=== PATIENT | male | born 1950 | race African-American/Black ===

== ENCOUNTER 2020-05-13 13:19 | Inpatient (IN) | payer MEDICARE, OTHER ==
[~2020-05-13] VITALS: Ht 172.7 cm; Wt 84.4 kg
[~2020-05-13 13:19] MED LIST: ASA PO; FOLI-43 PO; LEVO500T2 PO
[2020-05-13] MEDS ORDERED: SODIUM CHLORIDE 0.9% 1,000 ML IV ONE (13:45)
[2020-05-13 14:40] LABS: BASOPHILS % 0.5 % (0.0-2.0); EOSINOPHILS % 1.3 % (0.0-5.0); HEMATOCRIT. 35.2 % (42.0-52.0); HEMOGLOBIN. 11.6 g/dL (14.0-18.0); LYMPHOCYTES % 13.4 % (20.0-50.0); MEAN CORPUSCULAR HEMOGLOBIN 33.8 pg (28.0-32.0); MEAN CORPUSCULAR VOLUME 102.4 fL (80.0-94.0); MEAN PLATELET VOLUME 8.9 fl (7.4-10.4); NEUTROPHILS % 81.8 % (40.0-76.0); PLATELET 217 x1000/uL (130-400); RED BLOOD CELL COUNT 3.43 mill/uL (4.7-6.1); RED CELL DISTRIBUTION WIDTH 14.1 % (11.6-14.6)
[2020-05-13 14:44] LABS: ETHANOL BLOOD < 10 mg/dL
[2020-05-13 14:47] LABS: CHLORIDE 94 mEq/L (98-107)
[2020-05-13 15:33] LABS: INR 1.6; PARTIAL THROMBOPLASTIN TIME 37.6 sec (23.4-31.0); PROTHROMBIN TIME 16.8 sec (9.6-11.0)
[2020-05-13] MEDS ORDERED: SODIUM POLYSTYRENE SULFONATE 15 G/60 ML BOT PO ONE (15:45)
[2020-05-13] MEDS ORDERED: SODIUM BICARBONATE 8.4% 1 MEQ/ML 50ML SYR IV ONE (15:45)
[2020-05-13] MEDS ORDERED: INSULIN REGULAR (HUMULIN R) 300UNITS/3ML VIAL IV ONE (15:45)
[2020-05-13] MEDS ORDERED: ALBUTEROL (0.083%) 2.5MG/3ML NEB HHN ONE (15:45)
[2020-05-13] MEDS ORDERED: DEXTROSE 50% WATER 50ML SYRINGE IV ONE (15:45)
[2020-05-13] MEDS ORDERED: LACTULOSE 20G/30ML UDC PO ONE (17:00)
[2020-05-13] MEDS ORDERED: LORAZEPAM 2MG/ML CPJ IV PRN (19:30)
[2020-05-13] MEDS ORDERED: ONDANSETRON HCL 4MG/2ML INJ IV PRN (19:30)
[2020-05-13] MEDS ORDERED: FOLIC ACID 1 MG, THIAMINE HCL 100 MG, MVI, ADULT NO.1 10 ML in DEXTROSE 5% WATER 1,000 ML IV NR ×4 (20:00)
[2020-05-13 21:37] LABS: PHOSPHORUS 5.2 mg/dL (2.5-4.9)
[2020-05-13] MEDS: LACTULOSE 20G/30ML UDC PO SCH (22:00)
[2020-05-13] MEDS: CHLORDIAZEPOXIDE 25MG CAPSULE PO SCH (22:00)
[2020-05-13] MEDS: SODIUM CHLORIDE 0.9% 1,000 ML IV SCH (22:30)
[2020-05-14] VITALS (7 sets, daily range): BP systolic 88–125; BP diastolic 55–73
[2020-05-14 05:44] LABS: HEMATOCRIT. 32.2 % (42.0-52.0); HEMOGLOBIN. 10.8 g/dL (14.0-18.0); MEAN CORPUSCULAR HEMOGLOBIN 33.6 pg (28.0-32.0); MEAN CORPUSCULAR VOLUME 100.1 fL (80.0-94.0); MEAN PLATELET VOLUME 8.1 fl (7.4-10.4); PLATELET 161 x1000/uL (130-400); RED BLOOD CELL COUNT 3.22 mill/uL (4.7-6.1)
[2020-05-14] MEDS: CHLORDIAZEPOXIDE 25MG CAPSULE PO SCH ×3 (06:25→21:56)
[2020-05-14 07:10] LABS: CLARITY URINE CLOUDY (CLEAR); COLOR URINE ORANGE (YELLOW); KETONES URINE TRACE (NEGATIVE); LEUKOCYTE ESTERASE URINE 2+ (NEGATIVE); NITRITE URINE NEGATIVE (NEGATIVE); OCCULT BLOOD URINE 1+ (NEGATIVE); PROTEIN URINE NEGATIVE (NEGATIVE); SPECIFIC GRAVITY URINE 1.019 (1.005-1.030)
[2020-05-14 07:35] LABS: *AMPHETAMINES SCREEN URINE NEGATIVE (NEGATIVE); *BARBITURATES SCREEN URINE NEGATIVE (NEGATIVE); *BENZODIAZEPINES SCREEN URINE NEGATIVE (NEGATIVE); *COCAINE SCREEN URINE NEGATIVE (NEGATIVE); CANNABINOID URINE SCREEN NEGATIVE (NEGATIVE); METHADONE URINE SCREEN NEGATIVE (NEGATIVE); OPIATES URINE SCREEN NEGATIVE (NEGATIVE); PHENCYCLIDINE URINE SCREEN NEGATIVE (NEGATIVE)
[2020-05-14] MEDS ORDERED: CEFTRIAXONE 1 G PREMIX 50 ML IV SCH (09:00)
[2020-05-14 13:43] LABS: PLATELET ESTIMATE NORMAL
[2020-05-14] MEDS: LACTULOSE 20G/30ML UDC PO SCH ×3 (16:25→21:56)
[2020-05-14] MEDS: CEFTRIAXONE 1,000 MG in DEXTROSE 5% WATER 50 ML IV SCH (16:29)
[2020-05-14] MEDS: SODIUM CHLORIDE 0.9% 1,000 ML IV SCH (16:30)
[2020-05-14] MEDS: FOLIC ACID 1MG TABLET PO SCH (18:25)
[2020-05-14] MEDS: THIAMINE HCL 100MG TABLET PO SCH (18:25)
[2020-05-14] MEDS: MIDODRINE HCL 5MG TABLET PO SCH (22:23)
[2020-05-15] VITALS (12 sets, daily range): BP systolic 82–153; BP diastolic 50–74
[2020-05-15] MEDS: LACTULOSE 20G/30ML UDC PO SCH ×3 (05:29→21:28)
[2020-05-15] MEDS: CHLORDIAZEPOXIDE 25MG CAPSULE PO SCH ×3 (05:29→21:28)
[2020-05-15] MEDS: MIDODRINE HCL 5MG TABLET PO SCH ×3 (05:29→21:28)
[2020-05-15] MEDS: SODIUM CHLORIDE 0.9% 1,000 ML IV SCH (05:51)
[2020-05-15 06:20] LABS: BASOPHILS % 0.4 % (0.0-2.0); EOSINOPHILS % 0.8 % (0.0-5.0); HEMATOCRIT. 28.2 % (42.0-52.0); HEMOGLOBIN. 9.3 g/dL (14.0-18.0); LYMPHOCYTES % 8.4 % (20.0-50.0); MEAN CORPUSCULAR HEMOGLOBIN 33.3 pg (28.0-32.0); MEAN CORPUSCULAR VOLUME 100.6 fL (80.0-94.0); MEAN PLATELET VOLUME 8.7 fl (7.4-10.4); MONOCYTES % 7.1 % (2.0-8.0); NEUTROPHILS % 83.3 % (40.0-76.0); PLATELET 161 x1000/uL (130-400); RED CELL DISTRIBUTION WIDTH 13.9 % (11.6-14.6)
[2020-05-15] MEDS: FOLIC ACID 1MG TABLET PO SCH ×2 (09:00→09:25)
[2020-05-15] MEDS ORDERED: THIAMINE HCL 100MG TABLET PO SCH (09:00)
[2020-05-15 09:02] LABS: VITAMIN B12 SERUM >2000 pg/mL pg/mL (211-911)
[2020-05-15] MEDS: THIAMINE HCL 100MG TABLET PO SCH (09:25)
[2020-05-15] MEDS: MULTIVITAMINS,THER W-MINERALS TABLET PO SCH (09:25)
[2020-05-15] MEDS: PANTOPRAZOLE SODIUM 40 MG/VIAL IV SCH (09:25)
[2020-05-15] MEDS: POTASSIUM CHLORIDE 20MEQ TABLET SR PO SCH ×2 (09:26→12:13)
[2020-05-15] MEDS ORDERED: PHYTONADIONE 10MG/ML AMP SUBCUT SCH (11:00)
[2020-05-15] MEDS: CEFTRIAXONE 1,000 MG in DEXTROSE 5% WATER 50 ML IV SCH (12:13)
[2020-05-15 13:07] LABS: INR 1.4
[2020-05-15 14:25] LABS: FERRITIN 309 ng/mL (22-322)
[2020-05-15] MEDS: NYSTATIN/TRIAMCIN CREAM 30GM TOP SCH ×2 (16:41→21:29)
[2020-05-16] VITALS (11 sets, daily range): BP systolic 119–162; BP diastolic 57–103
[2020-05-16] MEDS: MIDODRINE HCL 5MG TABLET PO SCH ×3 (05:05→22:00)
[2020-05-16] MEDS: CHLORDIAZEPOXIDE 25MG CAPSULE PO SCH ×3 (05:06→21:08)
[2020-05-16] MEDS: NYSTATIN/TRIAMCIN CREAM 30GM TOP SCH ×3 (05:06→21:09)
[2020-05-16] MEDS: LACTULOSE 20G/30ML UDC PO SCH ×3 (05:06→21:08)
[2020-05-16] MEDS ORDERED: PHYTONADIONE 10MG/ML AMP SUBCUT NR (06:00)
[2020-05-16 06:57] LABS: HEMATOCRIT. 30.2 % (42.0-52.0); HEMOGLOBIN. 9.9 g/dL (14.0-18.0); MEAN CORPUSCULAR HEMOGLOBIN 33.1 pg (28.0-32.0); MEAN CORPUSCULAR VOLUME 100.6 fL (80.0-94.0); MEAN PLATELET VOLUME 8.4 fl (7.4-10.4); PLATELET 177 x1000/uL (130-400); RED BLOOD CELL COUNT 3.01 mill/uL (4.7-6.1); RED CELL DISTRIBUTION WIDTH 14.1 % (11.6-14.6)
[2020-05-16 06:58] LABS: INR 1.4; PROTHROMBIN TIME 14.6 sec (9.6-11.0)
[2020-05-16] MEDS ORDERED: SODIUM BICARBONATE 4% (2.4MEQ) 5ML VIAL IV ONE (08:11)
[2020-05-16] MEDS ORDERED: LIDOCAINE HCL 1% 20ML VIAL (Pyxis) INJ ONE (08:11)
[2020-05-16] MEDS: FOLIC ACID 1MG TABLET PO SCH (09:00)
[2020-05-16] MEDS: MULTIVITAMINS,THER W-MINERALS TABLET PO SCH (09:00)
[2020-05-16] MEDS: THIAMINE HCL 100MG TABLET PO SCH (09:00)
[2020-05-16] MEDS: PANTOPRAZOLE SODIUM 40 MG/VIAL IV SCH (10:47)
[2020-05-16] MEDS ORDERED: POTASSIUM CHLORIDE 20MEQ TABLET SR PO NR (11:30)
[2020-05-16] MEDS: CEFTRIAXONE 1,000 MG in DEXTROSE 5% WATER 50 ML IV SCH (11:53)
[2020-05-16 16:09] LABS: PLATELET ESTIMATE NORMAL
[2020-05-16] MEDS: METOPROLOL TARTRATE 25MG TABLET PO SCH (21:19)
[2020-05-17] VITALS (12 sets, daily range): BP systolic 102–149; BP diastolic 46–74
[2020-05-17] MEDS: LACTULOSE 20G/30ML UDC PO SCH ×3 (05:18→22:19)
[2020-05-17] MEDS: CHLORDIAZEPOXIDE 25MG CAPSULE PO SCH ×2 (05:18→14:02)
[2020-05-17] MEDS: MIDODRINE HCL 5MG TABLET PO SCH ×3 (05:18→22:19)
[2020-05-17] MEDS: NYSTATIN/TRIAMCIN CREAM 30GM TOP SCH ×3 (05:19→22:19)
[2020-05-17 07:32] LABS: PHOSPHORUS 4.4 mg/dL (2.5-4.9)
[2020-05-17 07:34] LABS: HEMATOCRIT. 31.3 % (42.0-52.0); HEMOGLOBIN. 10.3 g/dL (14.0-18.0); MEAN CORPUSCULAR HEMOGLOBIN 33.3 pg (28.0-32.0); MEAN PLATELET VOLUME 8.9 fl (7.4-10.4); PLATELET 158 x1000/uL (130-400); RED CELL DISTRIBUTION WIDTH 14.3 % (11.6-14.6)
[2020-05-17 07:48] LABS: HEPATITIS B SURFACE ANTIGEN NEGATIVE
[2020-05-17 08:16] LABS: HEPATITIS A AB IGM NEGATIVE (NEGATIVE)
[2020-05-17] MEDS: METOPROLOL TARTRATE 25MG TABLET PO SCH ×2 (09:05→21:58)
[2020-05-17] MEDS: THIAMINE HCL 100MG TABLET PO SCH (09:06)
[2020-05-17] MEDS: MULTIVITAMINS,THER W-MINERALS TABLET PO SCH (09:07)
[2020-05-17] MEDS: PANTOPRAZOLE SODIUM 40 MG/VIAL IV SCH (09:40)
[2020-05-17] MEDS: FOLIC ACID 1MG TABLET PO SCH (10:03)
[2020-05-17] MEDS: CEFTRIAXONE 1,000 MG in DEXTROSE 5% WATER 50 ML IV SCH (12:03)
[2020-05-17] MEDS: SODIUM CHLORIDE 0.45% 1,000 ML IV SCH (17:03)
[2020-05-17 22:11] LABS: PLATELET ESTIMATE NORMAL
[2020-05-17] MEDS: CEFEPIME 2,000 MG in DEXT 5% WATER 100 ML IV SCH (22:21)
[2020-05-17] MEDS: METRONIDAZOLE 500 MG PREMIX 100 ML IV SCH (22:23)
[2020-05-18] VITALS (14 sets, daily range): BP systolic 92–147; BP diastolic 38–62
[2020-05-18] MEDS: LACTULOSE 20G/30ML UDC PO SCH ×3 (05:51→21:22)
[2020-05-18] MEDS: MIDODRINE HCL 5MG TABLET PO SCH ×3 (05:51→21:22)
[2020-05-18] MEDS: NYSTATIN/TRIAMCIN CREAM 30GM TOP SCH ×3 (05:52→21:23)
[2020-05-18 08:53] LABS: HEMATOCRIT. 33.9 % (42.0-52.0); HEMOGLOBIN. 10.9 g/dL (14.0-18.0); MEAN CORPUSCULAR HEMOGLOBIN 32.8 pg (28.0-32.0); MEAN CORPUSCULAR VOLUME 101.9 fL (80.0-94.0); PLATELET 145 x1000/uL (130-400); RED BLOOD CELL COUNT 3.33 mill/uL (4.7-6.1); RED CELL DISTRIBUTION WIDTH 14.4 % (11.6-14.6)
[2020-05-18] MEDS: METRONIDAZOLE 500 MG PREMIX 100 ML IV SCH ×2 (08:57→21:22)
[2020-05-18] MEDS: PANTOPRAZOLE SODIUM 40 MG/VIAL IV SCH (08:58)
[2020-05-18] MEDS: FOLIC ACID 1MG TABLET PO SCH (08:58)
[2020-05-18] MEDS: THIAMINE HCL 100MG TABLET PO SCH (08:59)
[2020-05-18] MEDS: METOPROLOL TARTRATE 25MG TABLET PO SCH ×2 (08:59→21:00)
[2020-05-18] MEDS: MULTIVITAMINS,THER W-MINERALS TABLET PO SCH (09:00)
[2020-05-18 12:27] LABS: BG BASE EXCESS -5.7 mmol/L (-2.0-2.0); BG CARBOXYHEMOGLOBIN 0.3 % (0.5-1.5); BG DEOXYHEMOGLOBIN 4.1 % (0.0-5.0); BG FRACTION INSPIRED OXYGEN 21; BG HCO3 ACT 17.4 mmol/L (22.0-26.0); BG METHEMOGLOBIN 0.5 % (0.0-1.5); BG OXYGEN SATURATION 95.9 % (92.0-98.5); BG OXYHEMOGLOBIN 95.1 % (94.0-97.0); BG PH 7.426 (7.350-7.450); BG PO2 87.9 mmHg (75.0-100.0); BG SAMPLE SITE RIGHT FEMORAL; BG TOTAL HEMOGLOBIN 11.4 g/dL (12.0-18.0); BG VENT MODE ROOM AIR
[2020-05-18] MEDS: SODIUM CHLORIDE 0.45% 1,000 ML IV SCH (13:14)
[2020-05-18 20:34] LABS: PLATELET ESTIMATE NORMAL
[2020-05-18] MEDS: CEFEPIME 2,000 MG in DEXT 5% WATER 100 ML IV SCH (21:22)
[2020-05-19] VITALS (60 sets, daily range): BP systolic 61–145; BP diastolic 36–67
[2020-05-19] MEDS: LACTULOSE 20G/30ML UDC PO SCH ×3 (05:04→21:12)
[2020-05-19] MEDS: MIDODRINE HCL 5MG TABLET PO SCH ×3 (05:04→21:12)
[2020-05-19] MEDS: NYSTATIN/TRIAMCIN CREAM 30GM TOP SCH ×3 (05:05→21:13)
[2020-05-19] MEDS ORDERED: THROMBIN (BOVINE) 5000 UNITS/VIAL TOP ONE (06:13)
[2020-05-19] MEDS ORDERED: BACITRACIN 15GM TUBE TOP ONE (06:13)
[2020-05-19] MEDS ORDERED: BACITRACIN 50,000 UNITS/VIAL ONE (06:13)
[2020-05-19 06:48] LABS: BASOPHILS % 0.2 % (0.0-2.0); EOSINOPHILS % 0.3 % (0.0-5.0); HEMATOCRIT. 29.2 % (42.0-52.0); HEMOGLOBIN. 9.7 g/dL (14.0-18.0); LYMPHOCYTES % 7.5 % (20.0-50.0); MEAN CORPUSCULAR HEMOGLOBIN 33.2 pg (28.0-32.0); MEAN CORPUSCULAR VOLUME 100.6 fL (80.0-94.0); MEAN PLATELET VOLUME 9.7 fl (7.4-10.4); MONOCYTES % 8.1 % (2.0-8.0); NEUTROPHILS % 83.9 % (40.0-76.0); PLATELET 115 x1000/uL (130-400); RED CELL DISTRIBUTION WIDTH 14.4 % (11.6-14.6)
[2020-05-19] MEDS ORDERED: MIDAZOLAM HCL 2 MG/2 ML VIAL ONE (07:05)
[2020-05-19] MEDS ORDERED: FENTANYL CITRATE/PF 50MCG/ML 2ML VIAL ONE (07:05)
[2020-05-19] MEDS ORDERED: LEVETIRACETAM 500 MG in SODIUM CHLORIDE 0.9% 100 ML IV SCH (07:30)
[2020-05-19] MEDS ORDERED: SODIUM BICARBONATE 4% (2.4MEQ) 5ML VIAL IV ONE (08:02)
[2020-05-19] MEDS ORDERED: LIDOCAINE HCL 1% 20ML VIAL (Pyxis) INJ ONE (08:04)
[2020-05-19] MEDS ORDERED: HEPARIN 1000 UNITS/ML 10ML ONE (08:05)
[2020-05-19] MEDS ORDERED: DOPAMINE 400MG/250ML PREMIX 250 ML IV ONE (08:23)
[2020-05-19] MEDS ORDERED: NICARDIPINE 100 MG in SODIUM CHLORIDE 0.9% 60 ML IV PRN (08:30)
[2020-05-19] MEDS: SODIUM CHLORIDE 0.45% 1,000 ML IV SCH ×2 (08:30→20:50)
[2020-05-19] MEDS ORDERED: ONDANSETRON HCL 4MG/2ML INJ ONE (08:44)
[2020-05-19] MEDS ORDERED: SODIUM CHLORIDE 0.9% 200 ML IV ONE (08:45)
[2020-05-19] MEDS: DOPAMINE 400MG/250ML PREMIX 250 ML IV PRN (08:51)
[2020-05-19] MEDS: FOLIC ACID 1MG TABLET PO SCH (08:52)
[2020-05-19] MEDS: THIAMINE HCL 100MG TABLET PO SCH (08:52)
[2020-05-19] MEDS: MULTIVITAMINS,THER W-MINERALS TABLET PO SCH (08:52)
[2020-05-19] MEDS: METOPROLOL TARTRATE 25MG TABLET PO SCH ×2 (08:52→20:36)
[2020-05-19] MEDS: METRONIDAZOLE 500 MG PREMIX 100 ML IV SCH ×2 (09:53→20:36)
[2020-05-19] MEDS: PANTOPRAZOLE SODIUM 40 MG/VIAL IV SCH (09:53)
[2020-05-19] MEDS: LEVETIRACETAM 500MG PREMIX 100 ML IV SCH ×2 (09:53→20:36)
[2020-05-19] MEDS ORDERED: VASOPRESSIN 20 UNIT in SODIUM CHLORIDE 0.9% 99 ML IV PRN (11:45)
[2020-05-19] MEDS: NOREPINEPHRINE 32 MG in DEXT 5% WATER 218 ML IV PRN ×2 (14:08→22:56)
[2020-05-19 17:01] LABS: INR 1.7; PROTHROMBIN TIME 17.1 sec (9.6-11.0)
[2020-05-19] MEDS: CEFEPIME 2,000 MG in DEXT 5% WATER 100 ML IV SCH (20:35)
[2020-05-20] VITALS (76 sets, daily range): BP systolic 0–110; BP diastolic 0–68
[2020-05-20 05:42] LABS: HEMATOCRIT. 37.2 % (42.0-52.0); HEMOGLOBIN. 11.9 g/dL (14.0-18.0); MEAN CORPUSCULAR HEMOGLOBIN 32.7 pg (28.0-32.0); MEAN CORPUSCULAR VOLUME 101.7 fL (80.0-94.0); MEAN PLATELET VOLUME 9.1 fl (7.4-10.4); PLATELET 119 x1000/uL (130-400); RED BLOOD CELL COUNT 3.65 mill/uL (4.7-6.1); RED CELL DISTRIBUTION WIDTH 14.5 % (11.6-14.6)
[2020-05-20] MEDS: LACTULOSE 20G/30ML UDC PO SCH (05:45)
[2020-05-20] MEDS: MIDODRINE HCL 5MG TABLET PO SCH (05:45)
[2020-05-20] MEDS: NYSTATIN/TRIAMCIN CREAM 30GM TOP SCH (05:45)
[2020-05-20 06:00] LABS: CHLORIDE 108 mEq/L (98-107)
[2020-05-20] MEDS: NOREPINEPHRINE 32 MG in DEXT 5% WATER 218 ML IV PRN ×2 (06:48→08:27)
[2020-05-20] MEDS: DOPAMINE 400MG/250ML PREMIX 250 ML IV PRN (08:26)
[2020-05-20] MEDS: METOPROLOL TARTRATE 25MG TABLET PO SCH (09:00)
[2020-05-20] MEDS: PANTOPRAZOLE SODIUM 40 MG/VIAL IV SCH (09:22)
[2020-05-20] MEDS: LEVETIRACETAM 500MG PREMIX 100 ML IV SCH (09:22)
[2020-05-20] MEDS: THIAMINE HCL 100MG TABLET PO SCH (09:23)
[2020-05-20] MEDS: FOLIC ACID 1MG TABLET PO SCH (09:23)
[2020-05-20] MEDS: METRONIDAZOLE 500 MG PREMIX 100 ML IV SCH (09:23)
[2020-05-20] MEDS: MULTIVITAMINS,THER W-MINERALS TABLET PO SCH (09:23)
[2020-05-20] MEDS ORDERED: SODIUM POLYSTYRENE SULFONATE 15 G/60 ML BOT PO SCH (09:45)
[2020-05-20] MEDS ORDERED: DEXTROSE 50% WATER 50ML SYRINGE IV SCH (09:45)
[2020-05-20] MEDS ORDERED: CALCIUM GLUCONATE 1,000 MG in DEXT 5% WATER 90 ML IV ONE (09:45)
[2020-05-20] MEDS ORDERED: SODIUM BICARBONATE 8.4% 1 MEQ/ML 50ML SYR IV ONE (09:45)
[2020-05-20] MEDS ORDERED: INSULIN REGULAR (HUMULIN R) 300UNITS/3ML VIAL IV SCH (09:45)
[2020-05-20] MEDS ORDERED: PHENYLEPHRINE 100 MG in DEXT 5% WATER 240 ML IV PRN (10:00)
[2020-05-20] MEDS ORDERED: CALCIUM GLUCONATE 1 GM IV SCH (11:00)
[2020-05-20] MEDS ORDERED: LORAZEPAM 2MG/ML CPJ IV PRN ×2 (11:00→13:45)
[2020-05-20] MEDS ORDERED: MORPHINE SULFATE 2 MG/ML CPJ (NOT FOR IM USE) IV PRN ×2 (11:00→13:45)
[2020-05-20 17:53] LABS: PLATELET ESTIMATE DECREASED
== END 2020-05-20 14:44 | disposition expired | DRG 853 ==
LOC: ER 13:27 → MICUSO 16:58 → 5EST 05-14 10:10
PROVIDERS: ADMIT Internal Medicine; ATTEND Internal Medicine
PROC: 0W9G3ZZ Drainage of Peritoneal Cavity, Percutaneous Approach (ICD-10-PCS; 2020-05-16)
PROC: 00C40ZZ Extirpation of Matter from Intracranial Subdural Space, Open Approach (ICD-10-PCS; principal; 2020-05-19)
PROC: 00U207Z Supplement Dura Mater with Autologous Tissue Substitute, Open Approach (ICD-10-PCS; 2020-05-19)
PROC: 0NU00JZ Supplement Skull with Synthetic Substitute, Open Approach (ICD-10-PCS; 2020-05-19)
PROC: 00H032Z Insertion of Monitoring Device into Brain, Percutaneous Approach (ICD-10-PCS; 2020-05-19)
PROC: 4A103BD Monitoring of Intracranial Pressure, Percutaneous Approach (ICD-10-PCS; 2020-05-19)
PROC: 02HV33Z Insertion of Infusion Device into Superior Vena Cava, Percutaneous Approach (ICD-10-PCS; 2020-05-19)
PROC: B548ZZA Ultrasonography of Superior Vena Cava, Guidance (ICD-10-PCS; 2020-05-19)
PROC: 30233K1 Transfusion of Nonautologous Frozen Plasma into Peripheral Vein, Percutaneous Approach (ICD-10-PCS; 2020-05-19)
DX: A41.9 Sepsis, unspecified organism (principal); I62.02 Nontraumatic subacute subdural hemorrhage; E43 Unspecified severe protein-calorie malnutrition; K85.90 Acute pancreatitis without necrosis or infection, unspecified; N18.6 End stage renal disease; K72.00 Acute and subacute hepatic failure without coma; K76.7 Hepatorenal syndrome; R65.21 Severe sepsis with septic shock; I50.43 Acute on chronic combined systolic (congestive) and diastolic (congestive) heart failure; R18.8 Other ascites; N17.9 Acute kidney failure, unspecified; E87.1 Hypo-osmolality and hyponatremia; N39.0 Urinary tract infection, site not specified; I13.2 Hypertensive heart and chronic kidney disease with heart failure and with stage 5 chronic kidney disease, or end stage renal disease; K74.60 Unspecified cirrhosis of liver; K76.0 Fatty (change of) liver, not elsewhere classified; D64.9 Anemia, unspecified; E87.5 Hyperkalemia; E87.8 Other disorders of electrolyte and fluid balance, not elsewhere classified; D69.6 Thrombocytopenia, unspecified; F17.210 Nicotine dependence, cigarettes, uncomplicated; I27.20 Pulmonary hypertension, unspecified; I48.0 Paroxysmal atrial fibrillation; Z66 Do not resuscitate; Z51.5 Encounter for palliative care; L85.3 Xerosis cutis; K72.90 Hepatic failure, unspecified without coma; K80.20 Calculus of gallbladder without cholecystitis without obstruction; N20.0 Calculus of kidney; F41.9 Anxiety disorder, unspecified; L89.616 Pressure-induced deep tissue damage of right heel; I73.9 Peripheral vascular disease, unspecified; F10.10 Alcohol abuse, uncomplicated; Z71.41 Alcohol abuse counseling and surveillance of alcoholic; Z20.822 Contact with and (suspected) exposure to COVID-19
CPT/HCPCS: 36415; 36600; 49083; 71045; 74176; 76604; 76705; 76770; 76937; 80048; 80053; 80076; 80305; 80320; 81003; 82040; 82140; 82150; 82270; 82375; 82607; 82728; 82746; 82805; 82962; 83540; 83550; 83735; 83880; 83970; 84100; 84132; 84134; 84145; 84155; 84425; 84484; 85025; 85044; 86703; 86705; 86709; 86803; 86850; 86900; 86927; 87070; 87075; 87340; 87426; 88304; 93005; 93306; 93923; 93970; 94644; 97110; 97162; 97166; 99291; A6261; C1713; C1752; C9113; J0610; J0692; J0696; J1265; J1644; J1815; J1953; J2060; J2250; J2270; J2405; J3010; J3411; J3430; J3490; J7030; J7050; J7060; J7070; P9017; A4315; G0480